=== PATIENT | female | born 1945 | race Caucasian/White ===

== ENCOUNTER 2024-01-03 03:10 | Inpatient (IN) ==
[2024-01-03] MEDS ORDERED: IOPAMIDOL 100 ML BOTTLE IV ONE (03:11)
[2024-01-03] MEDS ORDERED: morphine 2 MG/ML VIAL IV PRN (03:31)
[2024-01-03] MEDS: 0.9 % SODIUM CHLORIDE 1,000 ML IV ONE (03:46)
[2024-01-03] MEDS: ONDANSETRON 4 MG/2 ML VIAL IV ONE (03:46)
[2024-01-03] MEDS: ACETAMINOPHEN 1,000 MG/100 ML BAG IV ONE (03:59)
[2024-01-03 04:39] LABS: Basophils # (Auto) 0.01 K/mcL (0.00-0.30); Basophils % (Auto) 0.2 % (0.0-2.0); Eosinophils # (Auto) 0.02 K/mcL (0.00-0.70); Eosinophils % (Auto) 0.3 % (0.0-7.0); Hematocrit 34.4 % (34.1-44.9); Hemoglobin 10.8 g/dL (11.2-15.7); Lymphocytes # (Auto) 0.68 K/mcL (1.50-4.80); Lymphocytes % (Auto) 11.6 % (15.5-49.0); Mean Cell Volume 99.7 fL (80.0-100.0); Mean Corpuscular HGB Conc 31.4 g/dL (31.0-36.0); Mean Platelet Volume 11.8 fL (8.8-12.5); Monocytes # (Auto) 0.97 K/mcL (0.10-0.90); Monocytes % (Auto) 16.5 % (1.0-12.0); Neutrophils % (Auto) 71.2 % (38.0-78.0); Platelet Count 185 K/mcL (140-440); RBC 3.45 M/mcL (3.59-5.38); Red Cell Distribution Width 14.3 % (11.5-14.5); WBC 5.9 K/mcL (4.5-11.0)
[2024-01-03 05:09] LABS: ALT/SGPT < 5 U/L (<40); AST/SGOT 15 U/L (<32); Albumin 3.7 gm/dL (3.2-5.2); Albumin/Globulin Ratio 1.7 (1.0-2.3); Alkaline Phosphatase 72 U/L (39-117); Bilirubin,Total 0.4 mg/dL (0.1-1.0); Blood Urea Nitrogen 15 mg/dL (8-23); Calcium 11.7 mg/dL (8.6-10.4); Carbon Dioxide 25 mmol/L (22-30); Chloride 102 mmol/L (96-108); Globulin 2.2 gm/dL (2.2-3.7); Glomerular Filtration Rate 55; Glucose 119 mg/dL (70-105); Potassium 2.8 mmol/L (3.3-5.1); Sodium 141 mmol/L (133-145)
[2024-01-03] MEDS ORDERED: ACETAMINOPHEN 325 MG TABLET PO PRN (05:32)
[2024-01-03] MEDS ORDERED: ONDANSETRON 4 MG/2 ML VIAL IV PRN (05:32)
[2024-01-03] MEDS: POLYETHYLENE GLYCOL 3350 17 GM PACKET PO PRN (08:13)
[2024-01-03] MEDS: POTASSIUM CHLORIDE 80 MEQ in DEXTROSE 5% IN WATER 1,000 ML IV ONE (08:51)
[2024-01-03] MEDS ORDERED: traMADol 50 MG TABLET PO PRN (13:55)
[2024-01-03] MEDS ORDERED: LACTULOSE 20 GM/30 ML ORAL.SOL PO SCH (14:15)
[2024-01-03 14:59] LABS: INR 3.6 (0.9-1.1); Prothrombin Time 36.4 sec (11.9-14.5)
[2024-01-03] MEDS: POTASSIUM CHLORIDE 20 MEQ TABLET PO SCH (17:04)
[2024-01-03] MEDS: POLYETHYLENE GLYCOL 3350 17 GM PACKET PO SCH (18:49)
[2024-01-03] MEDS: GABAPENTIN 100 MG CAPSULE PO SCH (21:14)
[2024-01-03] MEDS: sulfaSALAzine 500 MG TABLET PO SCH (21:14)
[2024-01-03] MEDS: valACYclovir 500 MG TABLET PO SCH (21:15)
[2024-01-03] MEDS: SENNOSIDES 1 TABLET PO SCH (21:15)
[2024-01-03] MEDS: VENLAFAXINE 37.5 MG TABLET PO SCH (21:15)
[2024-01-04] MEDS: GABAPENTIN 100 MG CAPSULE PO SCH (08:48)
[2024-01-04] MEDS: CARBIDOPA/LEVODOPA 25/100 TABLET PO SCH (08:48)
[2024-01-04] MEDS: buPROPion 75 MG TABLET PO SCH (08:49)
[2024-01-04] MEDS: METOPROLOL SUCCINATE 25 MG TAB.XL.24H PO SCH (08:49)
[2024-01-04] MEDS ORDERED: WARFARIN 5 MG TABLET PO SCH (09:00)
[2024-01-04 11:16] LABS: INR 6.4 (0.9-1.1); Prothrombin Time 57.3 sec (11.9-14.5)
== END 2024-01-04 13:30 | disposition home or self-care (01) | DRG 392 ==
LOC: ED 03:10 → MEDSUR 05:58
PROVIDERS: ADMIT Family Medicine Adult Medicine; ATTEND Family Medicine Adult Medicine